=== PATIENT | male | born 1950 | race Caucasian/White ===

== ENCOUNTER 2024-08-16 13:07 | Observation (INO) | payer MEDICARE ==
[2024-08-16] MEDS: HYDROmorphone 1 MG/ML 1 ML SYRINGE IVP STA ×2 (13:47→14:39)
[2024-08-16] MEDS: KETOROLAC 15 MG/ML 1 ML VIAL IVP STA (13:48)
--- NOTE | 2024-08-16 13:49 | ED ---
General Adult HPI - General Chief complaint: Extremity Problem,Nontraumatic Stated complaint: L Hip Pain Time Seen by Provider: 08/16/24 13:28 Source: patient, family, EMS, RN notes reviewed Mode of arrival: EMS Limitations: no limitations - History of Present Illness Initial comments: Patient is a 74-year-old male present to the emergency department with concerns for left hip pain. Onset of symptoms was close to 2 weeks ago. Patient has discomfort that starts at his lower back and extends to his buttocks and hip and a little bit down the leg. Discomfort does increase with movement. Discomfort increased while golfing a couple of days ago and then increased even more with bowling yesterday. No weakness. No incontinence or retention of bowel or bladder - Related Data Allergies Allergy/AdvReac Type Severity Reaction Status Date / Time No Known Allergies Allergy Verified 08/16/24 13:14 Review of Systems ROS Statement: Those systems with pertinent positive or pertinent negative responses have been documented in the HPI. ROS Other: All systems not noted in ROS Statement are negative. Constitutional: Denies: fever Eyes: Denies: eye pain ENT: Denies: ear pain Respiratory: Denies: dyspnea Cardiovascular: Denies: chest pain Endocrine: Denies: fatigue Gastrointestinal: Denies: abdominal pain Musculoskeletal: Reports: as per HPI, back pain Past Medical History Past Medical History: Hyperlipidemia, Hypertension History of Any Multi-Drug Resistant Organisms: None Reported Past Surgical History: No Surgical Hx Reported Smoking Status: Never smoker Past Alcohol Use History: None Reported Past Drug Use History: None Reported General Exam Limitations: no limitations General appearance: alert, in no apparent distress Head exam: Present: normocephalic Eye exam: Present: normal appearance Neck exam: Present: normal inspection Respiratory exam: Present: normal lung sounds bilaterally Cardiovascular Exam: Present: regular rate, normal rhythm Expanded Peripheral pulses: 2+: Posterior Tibialis (R), Posterior Tibialis (L) GI/Abdominal exam: Present: soft. Absent: tenderness, pulsatile mass Extremities exam: Present: tenderness (Left hip diffusely. Distally the extremity is neurovascular intact) Back exam: Present: vertebral tenderness (Mild to moderate mid lower lumbar) Neurological exam: Present: alert. Absent: motor sensory deficit Psychiatric exam: Present: normal affect, normal mood Skin exam: Present: normal color Course Vital Signs 08/16/24 13:09 Temperature 97.9 F Pulse Rate 104 H Respiratory 18 Rate Blood Pressure 182/102 O2 Sat by Pulse 99 Oximetry Medical Decision Making - Medical Decision Making Was pt. sent in by a medical professional or institution ([facility], MASTIC MAN, urgent care, hospital, or senior care...) When possible be specific @ -No Did you speak to anyone other than the patient for history (EMS, parent, family, police, friend...)? What history was obtained from this source @ - is present and helps provide additional history including onset of symptoms Did you review nursing and triage notes (agree or disagree)? Why? @ -I reviewed and agree with nursing and triage notes Were old charts reviewed (outside hosp., previous admission, EMS record, old EKG, old radiological studies, urgent care reports/EKG's, senior care records)? Report findings @ -No old charts were reviewed Differential Diagnosis (chest pain, altered mental status, abdominal pain women, abdominal pain men, vaginal bleeding, weakness, fever, dyspnea, syncope, headache, dizziness, GI bleed, back pain, seizure, CVA, palpatations, mental health, musculoskeletal)? @ -Differential Back Pain: Strain, zoster, cauda equina syndrome, epidural abscess, vertebral osteomyelitis, discitis, fracture, subluxation, disc herniation, DJD, spinal stenosis, dissection, AAA, pancreatitis, peptic ulcer disease, pyelonephritis, kidney stone, this is not meant to be an all-inclusive list. EKG interpreted by me (3pts min.). @ -As above X-rays interpreted by me (1pt min.). @ -Lumbar x-ray showed mild degenerative changes. Hip x-ray without acute abnormality CT interpreted by me (1pt min.). @ -None done U/S interpreted by me (1pt. min.). @ -None done What testing was considered but not performed or refused? (CT, X-rays, U/S, labs)? Why? @ -None What meds were considered but not given or refused? Why? @ -None Did you discuss the management of the patient with other professionals (professionals i.e. [facility] Manuel, MASTIC MAN, lab, RT, psych nurse, psychologist social, firearms inspector, teacher, aircraft electronics technical officer, caser)? Give summary @ -Case discussed with practitioner Reny Fish who will admit covering with Dr. Marks, who admits for Dr. Bryan, covering for Dr. Hinkle Was smoking cessation discussed for >3mins.? @ -No Was critical care preformed (if so, how long)? @ -No Were there social determinants of health that impacted care today? How? (Homelessness, low income, unemployed, alcoholism, drug addiction, transportation, low edu. Level, literacy, decrease access to med. care, group home, rehab)? @ -No Was there de-escalation of care discussed even if they declined (Discuss DNR or withdrawal of care, Hospice)? DNR status @ -No What co-morbidities impacted this encounter? (DM, HTN, Smoking, COPD, CAD, Cancer, CVA, ARF, Chemo, Hep., AIDS, mental health diagnosis, sleep apnea, morbid obesity)? @ -None Was patient admitted / discharged? Hospital course, mention meds given and route, prescriptions, significant lab abnormalities, going to OR and other pertinent info. @ -Patient presents with hip pain radiating from the lower back. Patient given several doses of medication without improvement. Patient will be admitted. Admission orders written. Ortho will be placed on consult. Undiagnosed new problem with uncertain prognosis? @ -No Drug Therapy requiring intensive monitoring for toxicity (Heparin, Nitro, Insulin, Cardizem)? @ -No Were any procedures done? @ -No Diagnosis/symptom? @ -Lumbar radiculopathy Acute, or Chronic, or Acute on Chronic? @ -Acute Uncomplicated (without systemic symptoms) or Complicated (systemic symptoms)? @ -Default Side effects of treatment? @ -No Exacerbation, Progression, or Severe Exacerbation? @ -No Poses a threat to life or bodily function? How? (Chest pain, USA, NC, pneumonia, PE, COPD, DKA, ARF, appy, cholecystitis, CVA, Diverticulitis, Homicidal, Suicidal, threat to staff... and all critical care pts) @ -Threat to neurological function Disposition Clinical Impression: Lumbar radiculopathy Disposition: ADMITTED IP TO THIS HOSP Is patient prescribed a controlled substance at d/c from ED?: No Referrals: Minnie Caraballo DO [Primary Care Provider] - 1-2 days Time of Disposition: 16:44
--- NOTE | 2024-08-16 15:25 | XR ---
Lumbar spine HISTORY: Back pain without injury. COMPARISON: None TECHNIQUE: 3 views lumbar spine were obtained. The lumbar vertebral segments are normal in height and alignment and there is no fracture or subluxat ion. The disc spaces are well preserved. There is spondylosis throughout the lumbar region indicating mild degenerative disc disease. The visualized sacrum and SI joints are normal. IMPRESSION: 1. No lumbar spine fracture or malalignment. 2. Mild degenerative disc disease throughout the lumbar region.. [facility], Workstation: [facility], 08/16/2024 3:22 PM
--- NOTE | 2024-08-16 15:27 | XR ---
EXAMINATION TYPE: XR Hip LT and AP Pelvis DATE OF EXAM: 08/16/2024 COMPARISON: NONE HISTORY: Pain without injury TECHNIQUE: A single AP view of the pelvis is obtained. Two views of the left hip are obtained. FINDINGS: There is no acute fracture/dislocation evident in the pelvis. The hip and sacroiliac join ts appear symmetric and unremarkable. The overlying soft tissue appears unremarkable. There is mild subchondral sclerosis and joint space narrowing indicative of mild osteoarthritis of t he left hip. There is no hip fracture or dislocation. IMPRESSION: There is no acute fracture or dislocation in the pelvis or left hip. Mild osteoarthritis of the left hip. [facility], , 08/16/2024 3:24 PM
[2024-08-16] MEDS ORDERED: HYDROmorphone 1 MG/ML 1 ML SYRINGE IVP PRN (16:45)
[2024-08-16] MEDS ORDERED: NALOXONE 0.4 MG/ML 1 ML VIAL IV PRN (16:45)
[2024-08-16] MEDS ORDERED: KETOROLAC 15 MG/ML 1 ML VIAL IVP PRN (16:45)
[2024-08-16] MEDS ORDERED: ONDANSETRON 4 MG/2 ML VIAL IVP PRN (16:45)
[2024-08-16] MEDS ORDERED: HYDROmorphone 0.5 MG/0.5 ML SYRINGE IVP PRN (16:45)
[2024-08-16] MEDS: ORPHENADRINE 30 MG/ML 2 ML VIAL IVP STA (17:00)
[2024-08-16] MEDS: methylPREDNISolone SOD SUCCI 125 MG/2 ML VIAL IV STA (17:01)
[2024-08-16] MEDS: SODIUM CHLORIDE 0.9% 1,000 ML IV SCH (17:03)
[2024-08-16 17:20] LABS: Basophils % (A) 0 %; Eosinophils % (A) 0 %; HCT 47.9 % (39.0-53.0); HGB 14.9 gm/dL (13.0-17.5); Lymphocytes # (A) 0.7 k/uL (1.0-4.8); Lymphocytes % (A) 5 %; MCHC 31.1 g/dL (31.0-37.0); MCV 90.1 fL (80.0-100.0); Mean Platelet Volume 6.8; Monocytes # (A) 0.6 k/uL (0-1.0); Monocytes % (A) 4 %; Neutrophils # (A) 13.7 k/uL (1.3-7.7); Neutrophils % (A) 90 %; Platelet Count 291 k/uL (150-450); RBC 5.32 m/uL (4.30-5.90); RDW 12.5 % (11.5-15.5); WBC 15.2 k/uL (3.8-10.6)
[2024-08-16 17:32] LABS: Prothrombin Time 11.1 sec (10.0-12.5)
[2024-08-16 17:34] LABS: ALT 18 U/L (4-49); AST 24 U/L (17-59); African American GFR (CKD) >90 (>60 ml/min/1.73 sqM); Albumin 4.8 g/dL (3.5-5.0); Alkaline Phosphatase 61 U/L (38-126); Anion Gap 12 mmol/L; Blood Urea Nitrogen 23 mg/dL (9-20); Calcium 9.7 mg/dL (8.4-10.2); Carbon Dioxide 23 mmol/L (22-30); Chloride 104 mmol/L (98-107); Glucose 162 mg/dL (74-99); Non-African American GFR(CKD) 83 (>60 ml/min/1.73 sqM); Sodium 139 mmol/L (137-145); Total Bilirubin 1.2 mg/dL (0.2-1.3); Total Protein 7.5 g/dL (6.3-8.2)
[2024-08-16] MEDS ORDERED: TEMAZEPAM 15 MG CAP PO PRN (17:34)
[2024-08-16] MEDS ORDERED: HYDROcodone/APAP 5-325MG 1 EACH TAB PO PRN (17:34)
[2024-08-16] MEDS ORDERED: ALPRAZolam 0.25 MG TAB PO PRN (17:34)
[2024-08-16] MEDS ORDERED: hydrALAZINE HCL 20 MG/ML 1 ML VIAL IVP PRN (17:36)
[2024-08-16] MEDS: hydroCHLOROthiazide 12.5 MG CAP PO SCH (17:40)
[2024-08-16] MEDS: VALSARTAN 160 MG TAB PO SCH (17:42)
[2024-08-16] MEDS: methylPREDNISolone SOD SUCCI 125 MG/2 ML VIAL IV SCH (17:59)
--- NOTE | 2024-08-16 18:00 | XR ---
EXAMINATION TYPE: XR chest 1V portable DATE OF EXAM: 08/16/2024 5:53 PM CLINICAL INDICATION: Male, 74 years old with history of chf; [facility] COMPARISON: None TECHNIQUE: XR chest 1V portable Frontal view of the chest. FINDINGS: Lungs/Pleura: There is no evidence of pleural effusion, focal consolidation, or pneumothorax. Pulmonary vascularity: Unremarkable. Heart/mediastinum: Cardiomediastinal silhouette is unremarkable. Musculoskeletal: No acute osseous pathology. IMPRESSION: No acute cardiopulmonary disease/process. [facility], , 08/16/2024 5:58 PM
[2024-08-16] MEDS: traMADol 50 MG TAB PO PRN (18:03)
[2024-08-16 19:33] LABS: Appearance,Urine Clear (Clear); Bilirubin,Urine Negative (Negative); Blood,Urine Negative (Negative); Color,Urine Yellow; Glucose,Urine (UA) 1+ (Negative); Hyaline Casts,Urine 1 /lpf (0-2); Ketones,Urine Trace (Negative); Leukocyte Esterase,Urine Negative (Negative); Mucus,Urine Many /hpf; Nitrite,Urine Negative (Negative); Protein,Urine 1+ (Negative); RBC,Urine 6 /hpf (0-5); Specific Gravity,Urine 1.026 (1.001-1.035); Squamous Epithelial Cell,Urine <1 /hpf (0-4); Urobilinogen,Urine <2.0 mg/dL (<2.0); WBC,Urine 2 /hpf (0-5)
[2024-08-16] MEDS: HEPARIN SODIUM,PORCINE 5,000 UNIT/ML 1 ML VIAL SQ SCH (21:41)
[2024-08-16] MEDS: ATORVASTATIN 20 MG TAB PO SCH (21:41)
--- NOTE | 2024-08-16 22:28 | HP ---
HISTORY AND PHYSICAL CHIEF COMPLAINT: Left hip and left thigh pain. HISTORY OF PRESENT ILLNESS: This is a 74-year-old gentleman, who was pretty active with a past medical history of hypertension and hyperlipidemia, complaining of mainly the left hip pain and as well as left thigh pain, not much back pain he has complained of. The patient has been unable to walk because of severe pain. There is no history of any fever, rigors, or chills. The patient came to [facility] and the lumbar spine x-ray showed some mild DJD and x- ray showed no acute infarction. Mild osteoarthritis. PAST MEDICAL HISTORY: Hypertension, hyperlipidemia. Rest of the history and rest of the chart is also reviewed. HOME MEDICATIONS: Valsartan. Dose and rest of medications noted. ALLERGIES: None. FAMILY HISTORY: No history of heart disease or strokes in the family. SOCIAL HISTORY: No history of smoking or alcohol. REVIEW OF SYSTEMS: Fourteen-point review is negative except as mentioned earlier. PHYSICAL EXAMINATION: VITAL SIGNS: Pulse is 104, blood pressure 182/102, respirations 18. HEENT: Conjunctivae normal. NECK: No JVD. CARDIOVASCULAR: S1, S2. RESPIRATIONS: Breath sounds diminished at the bases. No rhonchi. No crackles. ABDOMEN: Soft, nontender. LEGS: Left leg movement is painful. Hyperesthesia in the lateral part also present. NERVOUS SYSTEM: No focal deficits. The left leg is slightly weak, probably because of pain. LABORATORY DATA: WBC 15.2. ASSESSMENT: 1. Severe left knee pain and left thigh pain, rule out radiculopathy. 2. Gait dysfunction. 3. Failure of outpatient treatment. 4. Increased WBC. 5. Hypertension. 6. Hyperlipidemia. RECOMMENDATIONS AND DISCUSSION: This is a 74-year-old gentleman who presented with multiple complex medical issues, we will monitor the patient closely. I would recommend symptomatic treatment of the pain. I would also recommend orthopedic evaluation. I would recommend further evaluation depending upon orthopedic consultation. WBC elevated, exact etiology is not known. I recommend rest of the workup also. Empiric steroids have been initiated. Further recommendations to follow. If the pain is not better, I would also recommend further evaluation including bone scan. MMODL / IJN: [id number] /
[2024-08-17 04:18] VITALS: RESP 18
[2024-08-17] MEDS: PANTOPRAZOLE 40 MG TABLET PO SCH (06:09)
[2024-08-17 07:28] VITALS: BP 141/86; PULSE 93; TEMP 98.2
[2024-08-17 09:24] LABS: Basophils # (A) 0.03 X 10*3/uL (0.00-0.10); Basophils % (A) 0.2 %; Eosinophils # (A) 0 X 10*3/uL (0.04-0.35); Eosinophils % (A) 0 %; HGB 14.3 g/dL (13.0-17.0); Lymphocytes # (A) 0.92 X 10*3/uL (0.90-5.00); Lymphocytes % (A) 5.1 %; MCH 29.7 pg (27.0-32.0); MCHC 33.3 g/dL (32.0-37.0); MCV 89.2 FL (80.0-97.0); Mean Platelet Volume 9.9 FL (9.5-12.2); Monocytes # (A) 0.16 X 10*3/uL (0.20-1.00); Monocytes % (A) 0.9 %; NRBC Per 100 WBC 0 X 10*3/uL (0.00-0.01); Neutrophils # (A) 16.64 X 10*3/uL (1.80-7.70); Platelet Count 261 X 10*3/uL (140-440); RBC 4.82 X 10*6/uL (4.40-5.60); RDW 12.4 % (11.5-14.5); WBC 17.89 X 10*3/uL (4.50-10.00)
[2024-08-17 09:43] LABS: ALT 15 U/L (10-49); AST 17 U/L (14-35); Albumin 4.4 g/dL (3.8-4.9); Alkaline Phosphatase 67 U/L (41-126); Blood Urea Nitrogen 24.4 mg/dL (9.0-27.0); Calcium 9.2 mg/dL (8.7-10.3); Carbon Dioxide 23.5 mmol/L (21.6-31.8); Chloride 101 mmol/L (96-109); Globulin 2.2 g/dL (1.6-3.3); Glucose 148 mg/dL (70-110); Sodium 137 mmol/L (135-145); Total Protein 6.6 g/dL (6.2-8.2)
[2024-08-17] MEDS ORDERED: DEXTROSE 50% SYRINGE 50 ML IVP PRN ×2 (11:34)
[2024-08-17 11:59] LABS: Glucose,Whole Blood 143 mg/dL (70-110)
--- NOTE | 2024-08-17 12:00 | P.CNOR ---
History of Present Illness - [facility] Consult date: 08/17/24 Consult reason: other (Left lower extremity pain with weakness) History of present illness: Patient is a very pleasant 74-year-old male who has new onset of severe pain with weakness at his left lower extremity. Patient says that he did not have any specific incident or trauma but he had been playing golf and then gone bowling and was feeling progressive pain in his back toward his left gluteus and posterior thigh through the course of the day. By the time evening came in the next morning came he was essentially unable to walk and incapacitated due to his pain around his left gluteus and left hip. The pain extended down his left thigh toward his knee. Patient was having significant weakness. He did not have any prior issue like this in the past. He is not having problems his right lower extremity. He denied any problems with bowel or bladder function. He is denied any neck pain or shortness of breath. Denies any chest pain. Denies any specific injury. He said yesterday the pain was not helping with any medications. He was given some steroid and also tramadol and has been feeling significantly better since yesterday. He was able to get up and move around and get to the bathroom where he was able to void freely. He still has pain but he says is much better controlled today. Review of Systems As stated per HPI. Denies any bowel or bladder changes. Denies any trauma or injury. Denies chest pain shortness of breath denies any changes in his vision or his upper extremity strength or speech or facial expressions. Past Medical History Past Medical History: Hyperlipidemia, Hypertension History of Any Multi-Drug Resistant Organisms: None Reported Past Surgical History: Orthopedic Surgery Additional Past Surgical History / Comment(s): Right knee repairment; bilat cataract repair Past Anesthesia/Blood Transfusion Reactions: No Reported Reaction Past Psychological History: No Psychological Hx Reported Smoking Status: Never smoker Past Alcohol Use History: None Reported Past Drug Use History: None Reported Medications and Allergies Home Medications Medication Instructions Recorded Confirmed Type Simvastatin [Zocor] 40 mg PO HS 08/16/24 08/16/24 History Valsartan/Hydrochlorothiazide 1 tab PO DAILY 08/16/24 08/16/24 History [Valsartan-Hctz 160-12.5 mg Tab] Famotidine [Pepcid] 20 mg PO DAILY #12 tablet 08/17/24 Rx predniSONE [Deltasone] 20 mg PO DAILY #24 tab 08/17/24 Rx traMADol HCL 50 mg PO Q6H PRN 7 Days #28 tab 08/17/24 Rx Allergies Allergy/AdvReac Type Severity Reaction Status Date / Time No Known Allergies Allergy Verified 08/16/24 17:15 Physical Examination Osteopathic Statement: *. No significant issues noted on an osteopathic structural exam other than those noted in the History and Physical/Consult. - L Spine: dermatomal strength & reflexes left Strength: hip flexion: 4/5 (His back is nontender to palpation range of motion. There is no open wounds lacerations abrasions. At his left lower extremity he has 4 out of 5 hip flexion strength. 4+ out of 5 knee extension on the left. Otherwise 5 out of 5 strength with dorsiflexion plantarflexion EHL. 5 out of 5 in the ri) Strength: great toe extension: 5/5 (In the right lower extremity is 5 out of 5 strength throughout. His upper extremities of 5-5 strength throughout. His next nontender to palpation range of motion. His left lower extremity has 4 out of 5 strength with hip flexion and 4+ out of 5 with knee extension) Results - Labs Labs: Abnormal Lab Results - Last 24 Hours (Table) 08/16/24 08/16/24 08/16/24 Range/Units 17:00 17:00 19:07 WBC 15.2 H (3.8-10.6) k/uL Immature Gran # (0.00-0.04) X 10*3/uL Neutrophils # 13.7 H (1.3-7.7) k/uL Lymphocytes # 0.7 L (1.0-4.8) k/uL Monocytes # (0.20-1.00) X 10*3/uL Eosinophils # (0.04-0.35) X 10*3/uL Anion Gap (4.00-12.00) mmol/L BUN 23 H (9-20) mg/dL BUN/Creatinine Ratio (12.00-20.00) Ratio Glucose 162 H (74-99) mg/dL Urine Protein 1+ H (Negative) Urine Glucose (UA) 1+ H (Negative) Urine Ketones Trace H (Negative) Urine RBC 6 H (0-5) /hpf Urine Mucus Many H (None) /hpf 08/17/24 08/17/24 Range/Units 06:05 06:05 WBC 17.89 H (3.8-10.6) k/uL Immature Gran # 0.14 H (0.00-0.04) X 10*3/uL Neutrophils # 16.64 H (1.3-7.7) k/uL Lymphocytes # (1.0-4.8) k/uL Monocytes # 0.16 L (0.20-1.00) X 10*3/uL Eosinophils # 0 L (0.04-0.35) X 10*3/uL Anion Gap 12.50 H (4.00-12.00) mmol/L BUN (9-20) mg/dL BUN/Creatinine Ratio 24.40 H (12.00-20.00) Ratio Glucose 148 H (74-99) mg/dL Urine Protein (Negative) Urine Glucose (UA) (Negative) Urine Ketones (Negative) Urine RBC (0-5) /hpf Urine Mucus (None) /hpf H & H 08/16/24 08/17/24 Range/Units 17:00 06:05 Hgb 14.9 14.3 (13.0-17.5) gm/dL Hct 47.9 43.0 (39.0-53.0) % Coagulation 08/16/24 Range/Units 17:00 INR 1.0 (<1.2) Result Diagrams: 08/17/24 06:05 08/17/24 06:05 - Diagnostic results Lumbar AP/lateral x-ray: report reviewed, image reviewed (X-rays of his hip and his low back do not show any evidence of fracture. He has some degenerative changes in his bilateral hips worse on the right than left. There is no spondylolisthesis or fracture. He has some disc degeneration L3-4 L4-5 and some mild facet arthrosis) Assessment and Plan Assessment: Left lower extremity radiculopathy Left lower extremity weakness at the the left thigh and knee extension Degenerative disc disease Improving with conservative management Low back pain with difficulty ambulating Plan: Left lower extremity radiculopathy Left lower extremity weakness at the the left thigh and knee extension Degenerative disc disease Improving with conservative management Low back pain with difficulty ambulating The patient had new onset of left lower extremity colopathy and sciatica. He likely has a new disc protrusion or herniation causing significant left foraminal stenosis most likely at L3-4 with his distribution. The patient's symptoms have improved significantly since yesterday. He is getting significantly better with the steroid and the medication and has not been able to ambulate. He does exhibit some weakness at his left thigh and knee extension and will require further imaging. He is making some progress and he could continue close workup and treatment on outpatient basis. I think that he needs an MRI of his lumbar spine urgently. He would need close follow-up. If he is able to be discharged home from the medical standpoint and is okay from a spine standpoint from the discharge as long as he has scheduled MRI and close follow-up with us within the week. I would like him to continue oral steroids and a tapering schedule. Will order this for him. He feels that he has done well with tramadol as well and we will order some tramadol for him. I will discuss this with him. If he is able to obtain an MRI while he is here in the hospital that would be great but I have been informed that there is a significant backup to get an MRI and if he is comfortable we can continue this with close imaging and follow-up on outpatient basis. Time with Patient: Greater than 30
[2024-08-17] MEDS: INSULIN ASPART (NovoLOG) 100 UNIT/ML VIAL SQ SCH (12:22)
--- NOTE | 2024-08-18 09:47 | P.DS ---
Providers Date of admission: 08/16/24 16:45 Expected date of discharge: 08/17/24 Attending physician: Marielena Marks Consults: 08/16/24 16:45 Consult Physician Routine Consulting Provider: Shanell Romo Consult Reason/Comments: Lumbar radiculopathy Do you want consulting provider notified?: Yes Primary care physician: Minnie Caraballo Hospital Course: Final diagnosis Severe left knee pain and left thigh pain, possible radiculopathy Gait dysfunction secondary to above Failure of outpatient treatment with conservative measurements Increased WBC, possibly reactive Hypertension Hyperlipidemia GI prophylaxis DVT prophylaxis Full code Discharge disposition Patient is being discharged in a stable condition with guarded prognosis to home. Patient will follow-up with Dr. Caraballo in the outpatient setting upon discharge. Patient is to continue with steroid taper and close outpatient follow-up with orthopedics Dr. Romo as scheduled. Total time taken is greater than 35 minutes. Hospital course This is a 74-year-old male who was recently admitted with severe left knee and thigh pain being closely monitored. Patient evaluated by orthopedics recommending an MRI in the outpatient setting and close outpatient follow-up at the clinic. Prescription was provided by Dr. Romo for MRI and patient and family at the bedside has been instructed to contact insurance and possibly other facilities that can accommodate an MRI. Patient will continue on a steroid taper and also Ultram as needed for pain. Instructed patient to continue with only light duty and no strenuous activity until reevaluated by orthopedics. Patient reports to feeling improved and would like to go home. Patient has been cleared by orthopedics for outpatient follow-up. Please refer to other consultation note for further HPI. Currently no reports of chest pain, shortness of breath, or palpitations. Patient is afebrile. No reports of nausea or vomiting and patient is tolerating diet. Patient will be discharged home today. Guarded prognosis. Physical exam: Gen: This is a 74-year-old male who is awake, alert and oriented x 3, well- developed, thin built HEENT: Head is atraumatic, normocephalic. Pupils equal, round. Sclerae is anicteric. NECK: Supple. No JVD. No lymphadenopathy. No thyromegaly. LUNGS: Clear to auscultation. No wheezes or rhonchi. No intercostal retractions. HEART: Regular rate and rhythm. No murmur. ABDOMEN: Soft. Bowel sounds are present. No masses. No tenderness. EXTREMITIES: No pedal edema. No calf tenderness. No swelling of the left leg or thigh noted NEUROLOGICAL: Patient is awake, alert and oriented x3. Cranial nerves 2 through 12 are grossly intact. Please refer to medication reconciliation sheet for a list of medications. The impression and plan of care has been dictated by Cecilia Wright, Nurse Practitioner as directed. Dr. Kendrick MD I have performed a history and examination and MDM of this patient, discussed the same with the dictator, and agree with the dictator's assessment and plan as written ,documented as a scribe. Based on total visit time, I have performed more than 50% of the visit. Patient Condition at Discharge: Stable Plan - Discharge Summary Discharge Rx Participant: No New Discharge Prescriptions: New predniSONE [Deltasone] 20 mg PO DAILY #24 tab Famotidine [Pepcid] 20 mg PO DAILY #12 tablet traMADol HCL 50 mg PO Q6H PRN 7 Days #28 tab PRN Reason: Pain Continue Valsartan/Hydrochlorothiazide [Valsartan-Hctz 160-12.5 mg Tab] 1 tab PO DAILY Simvastatin [Zocor] 40 mg PO HS Discharge Medication List Simvastatin [Zocor] 40 mg PO HS 08/16/24 [History] Valsartan/Hydrochlorothiazide [Valsartan-Hctz 160-12.5 mg Tab] 1 tab PO DAILY 08/16/24 [History] Famotidine [Pepcid] 20 mg PO DAILY #12 tablet 08/17/24 [Rx] predniSONE [Deltasone] 20 mg PO DAILY #24 tab 08/17/24 [Rx] traMADol HCL 50 mg PO Q6H PRN 7 Days #28 tab 08/17/24 [Rx] Follow up Appointment(s)/Referral(s): Shanell Romo DO [Doctor of Osteopathic Medicine] - 08/20/24 1:00 pm (Follow-up with Dr. Romo [facility]) Minnie Caraballo DO [Primary Care Provider] - 1-2 days Ambulatory/Diagnostic Orders: Complete Blood Count w/diff [LAB.AMB] Time Frame: 3 Days, Location: None Selected Patient Instructions/Handouts: Lumbar Radiculopathy (GEN) Activity/Diet/Wound Care/Special Instructions: Okay to ambulate as tolerated. Avoid heavy or rigorous activity. Discharge Disposition: HOME SELF-CARE
== END 2024-08-17 14:00 | disposition home or self-care (01) ==
LOC: EC 13:07 → 6NMEDSUR 16:45
PROVIDERS: ADMIT Hospitalist; ATTEND Hospitalist
DX: M25.552 Pain in left hip (principal); M79.652 Pain in left thigh; M25.562 Pain in left knee; R26.9 Unspecified abnormalities of gait and mobility; E78.5 Hyperlipidemia, unspecified; I10 Essential (primary) hypertension; Z79.899 Other long term (current) drug therapy
CPT/HCPCS: 96376 ×2; 96372 ×2; 96374; 96375; 99284; 80053 ×2; 85652; 85025 ×2; 85610; 86140; 81001; 83036; 72100; 73502; 71045; G0378 ×2; J1644 ×2; J2360; J1171; J1885; J2919 ×2